=== PATIENT | male | born 1965 | race Caucasian/White ===

== ENCOUNTER 2022-04-16 18:02 | Emergency (ER) | payer OTHER ==
[2022-04-16] MEDS ORDERED: BACTRIM DS TAB1 EAC1 PO (19:57)
[2022-04-16] MEDS ORDERED: CEPHALEXIN500 MG PO (19:57)
== END 2022-04-16 20:33 | disposition home or self-care (01) ==
LOC: FER 18:02
DX: L03.116 Cellulitis of left lower limb (principal)
CPT/HCPCS: 99283